=== PATIENT | male | born 1955 | race African-American/Black ===

== ENCOUNTER 2022-03-20 17:27 | Emergency (ER) | payer SELFPAY ==
[~2022-03-20] VITALS: Ht 172.7 cm; Wt 102.1 kg
[~2022-03-20 17:27] MED LIST: CHOL100044 PO; LEVO175T7 PO
--- NOTE | 2022-03-20 17:30 | NUR ---
RECEIVED pt 66 yrs male camefrom home by cheryl c/o lt shoulder pain and lt arm pain 01/01 S/P TA TODAY moving all extramity no weekness
--- NOTE | 2022-03-20 17:45 | NUR ---
Examin BY DR. JIN
[2022-03-20] MEDS ORDERED: CYCLOBENZAPRINE 10 MG TABLET PO ONE (18:00)
[2022-03-20] MEDS ORDERED: KETOROLAC TROMETHAMINE INJ 30 MG/ML VIAL IM ONE (18:00)
--- NOTE | 2022-03-20 18:00 | NUR ---
X- RAY DONE AT BED SIDE
[2022-03-20] MEDS ORDERED: KETOROLAC TROMETHAMINE INJ 30 MG/ML VIAL ONE (18:19)
[2022-03-20] MEDS ORDERED: CYCLOBENZAPRINE 10 MG TABLET ONE (18:20)
[2022-03-20] MEDS ORDERED: CYCL5TAB PO (19:09)
[2022-03-20] MEDS ORDERED: KETO10TA2 PO (19:09)
--- NOTE | 2022-03-20 19:16 | NUR ---
Patient discharged to home in stable condition. Written and verbal after care instructions given. Patient verbalizes understanding of instruction.
[2022-03-20 19:17] VITALS: BP 148/94
== END 2022-03-20 19:17 | disposition home or self-care (01) ==
LOC: ER 17:52
DX: S13.4XXA Sprain of ligaments of cervical spine, initial encounter (principal); M25.512 Pain in left shoulder; E03.9 Hypothyroidism, unspecified; Z79.899 Other long term (current) drug therapy; V43.52XA Car driver injured in collision with other type car in traffic accident, initial encounter; Y93.89 Activity, other specified; Y92.89 Other specified places as the place of occurrence of the external cause; Y99.8 Other external cause status
CPT/HCPCS: 99284; 71045; 96372; 93005; 73030; J1885